=== PATIENT | male | born 2005 | race Caucasian/White ===

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

== ENCOUNTER 2024-01-26 18:39 | Emergency (ER) | payer BC, SELFPAY ==
[2024-01-26 18:40] VITALS: BP 132/77; PULSE 90; PULSE 92; RESP 14; TEMP 36.6; O2SAT 96; O2SAT 98; BMI 25.7
[2024-01-26 19:37] VITALS: BP 131/76; PULSE 79; RESP 16; O2SAT 98
--- NOTE | 2024-01-26 19:37 | CT_ITS ---
EXAM: CT HEAD WITHOUT INTRAVENOUS CONTRAST CLINICAL INDICATION: head truama TECHNIQUE: Multiple axial images were obtained of the head without intravenous contrast. This CT exam was performed using one or more of the following dose reduction techniques: automated exposure control, adjustment of the mA and/or kV according to patient size, and/or use of iterative reconstruction technique. COMPARISON: No relevant prior studies available. FINDINGS: BRAIN AND EXTRA-AXIAL SPACES: Unremarkable. No intra- or extra-axial hemorrhage. No evidence of acute infarct. No intracranial mass or mass effect. There is preservation of the freeman/white matter interface. Posterior fossa structures are unremarkable. Ventricles are appropriate for age. No hydrocephalus. Basal cisterns are patent. BONES/JOINTS: Unremarkable. No discrete lytic or blastic abnormalities. SINUSES: Unremarkable as visualized. Clear. MASTOID AIR CELLS: Unremarkable. Clear. ORBITS: Visualized globes, extraocular muscles, optic nerves and retrobulbar fat appear unremarkable. CT/Brain/Head without Contrast IMPRESSION: Negative head/brain CT without intravenous contrast. Electronically Signed: Bjorn Washington MD at 21:32 EDT ,
--- NOTE | 2024-01-26 19:40 | RAD_ITS ---
EXAM: XR RIGHT FOREARM, 2 VIEWS CLINICAL INDICATION: Injury/Pain TECHNIQUE: Frontal and lateral views of the right forearm. COMPARISON: No relevant prior studies available. FINDINGS: BONES/JOINTS: There is a fracture of the proximal ulna through the trochlear notch. No dislocation. SOFT TISSUES: Unremarkable. RAD/Forearm 2 Views IMPRESSION: Fracture of the proximal ulna through the trochlear notch. Electronically Signed: Bjorn Washington MD at 20:13 EDT ,
--- NOTE | 2024-01-26 19:40 | RAD_ITS ---
EXAM: XR RIGHT ELBOW, 2 VIEWS CLINICAL INDICATION: Injury/Pain TECHNIQUE: Frontal and lateral views of the right elbow. COMPARISON: No relevant prior studies available. FINDINGS: BONES/JOINTS: There is a fracture of the trochlear notch. There is overlying soft tissue swelling. There is no displacement of the anterior or posterior fat pads. Preservation of the joint space. No destructive or sclerotic lesions. SOFT TISSUES: See above. RAD/Elbow 2 Views IMPRESSION: Fracture of the proximal ulna at the trochlear notch. There is associated soft tissue swelling. Electronically Signed: Bjorn Washington MD at 20:24 EDT ,
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
[2024-01-26] MEDS: Acetaminophen 325 MG Tablet 650 MG PO (21:20)
[2024-01-26 21:27] VITALS: BP 122/78; PULSE 78; RESP 16; TEMP 36.7; O2SAT 99
== END 2024-01-26 21:58 | disposition home or self-care (01) ==
PROVIDERS: Emergency Provider Emergency Medicine; PCP Nurse Practitioner; Visit Provider Emergency Medicine
DX: S52.001A Unspecified fracture of upper end of right ulna, initial encounter for closed fracture (principal); V86.99XA Unspecified occupant of other special all-terrain or other off-road motor vehicle injured in nontraffic accident, initial encounter; Y93.89 Activity, other specified; S80.211A Abrasion, right knee, initial encounter; S80.212A Abrasion, left knee, initial encounter; S70.312A Abrasion, left thigh, initial encounter; S30.811A Abrasion of abdominal wall, initial encounter; Y92.89 Other specified places as the place of occurrence of the external cause
CPT/HCPCS: 29105; 29405; 70450; 73070; 73090; 99282

== ENCOUNTER 2024-02-04 08:02 | Day surgery (SDC) | payer BC, SELFPAY ==
[2024-02-04] VITALS (10 sets, daily range): BP systolic 122–146; BP diastolic 74–89; PULSE 68–84; RESP 14–16; TEMP 36.6–37.1; O2SAT 92–100; BMI 25.3
[2024-02-04] MEDS: Lactated Ringers 1,000 ML 15 ML IV (08:35)
--- NOTE | 2024-02-04 09:29 | PRE.ANES_ITS ---
ASA Classification* ASA Classification ASA Classification: 2 Assessment & Plan Anesthesia* Anesthesia Assessment Anesthesia Assessment: Discussed sedation and/or anesthesia options, risks, benefits, and alternatives with patient/parents/legal guardian/POA. Questions invited. The patient/parents/legal guardian/POA seems to understand and agrees to proceed with anesthesia plan. Reviewed the physical assessment, medical history, allergy history and patient home medications list prior to surgery/procedure/anesthetic and documented any changes. Performed airway and anesthesia risk assessments. Anesthesia Type Anesthesia Type: General (see written pre anesthesia record for full assessment) Anesthesia Focused Assessment* Temperature: 97.9 F Pulse Rate: 80 Blood Pressure: 122/79 Respiratory Rate: 16 Pulse Ox: 100 Airway Assessment Mouth opens: >3 cm Mallampati Score: II Focused Labs Anesthesia Preop lab: CBC CHEMISTRY COAG Pre-Assessment Diagnosis/Proposed Procedure Planned Operative Procedure(s): OPEN REDUCTION INTERNAL FIXATION OLECRANON FRACTURE Anesthesia History Anesthesia History - shipper and receiving: Anesthesia History - shipper and receiving Hx Hospitalization No 01/31/24 13:20 Any Problems With Anesthesia No 01/31/24 13:20 Cholinesterase deficiency No 01/31/24 13:20 You/Your Family Experience No 01/31/24 13:20 fever (hyperthermia) with Relationship Recent Exposure to Contagious No 02/04/24 08:28 Disease Does patient have nerve No 01/31/24 13:20 stimulator Patient instructed to have device shut off --Does patient have Pacemaker No 02/04/24 08:28 or ICD? When Was Last Pacemaker Check QUESTION #4 FULL TEXT: You/Your Family Experience fever (hyperthermia) with Anesthesia Last Oral Intake Last Oral intake: Last Oral Intake NPO since 22:15 02/04/24 08:28 Meds taken in AM with sips of No 02/04/24 08:28 water? Meds patient instructed to take am of surgery PONV PONV - shipper and receiving: PONV - shipper and receiving Female No 01/31/24 13:20 HX of Motion Sickness No 01/31/24 13:20 HX of N/V After Surgery No 01/31/24 13:20 Non-Smoker Yes 01/31/24 13:20 Duration of Surgery greater Yes 01/31/24 13:20 than 60 minutes Number of Risk Factors 2 01/31/24 13:20 PONV Score Moderate Risk 01/31/24 13:20 Height & Weight Height & Weight: Anesthesia: Height & Weight Height 6 ft 3 in 02/04/24 08:28 Weight: 92 kg 02/04/24 08:28 Body Mass Index (BMI) 25.3 02/04/24 08:28 Respiratory Assessment Respiratory Assessment - shipper and receiving: Respiratory Tract Infection Hx - shipper and receiving Hx Respiratory Tract Infection No 01/31/24 13:20 STOP Sleep Apnea STOP Sleep Apnea - shipper and receiving: STOP Sleep Apnea - shipper and receiving Hx Hypertension No 01/31/24 13:20 Hx Sleep Apnea No 01/31/24 13:20 CPAP BIPAP Do you snore loudly (louder No 01/31/24 13:20 than talking or can be heard Do you often feel tired/ No 01/31/24 13:20 fatigued/ sleepy during daytime? Has anyone observed you stop No 01/31/24 13:20 breathing during sleep? STOP Results Negative 01/31/24 13:20 QUESTION #5 FULL TEXT : Do you snore loudly (louder than talking or can be heard through closed doors)? 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 Specify any problems Hx of Preganancy in last 3 N/A 01/31/24 13:20 Months Nurse Filling Out Transfusion [id number] 01/31/24 13:20 & Questions: Date: 01/31/24 01/31/24 13:20 Time: :01/31/24 13:20 Patient unable to answer at this time (ie. confused, unrespo /Reproduction History /Reproductive History - shipper and receiving: /Reproductive Hx- shipper and receiving Hx Now Gestational Age (in weeks): EDC: Hx Hx Para Hx Section SAB Active Medications Active Medications: Current Medications Generic Name Dose Route Start Last Admin Trade Name Freq PRN Reason Stop Dose Admin Clindamycin/Sodium Chloride 600 mg in 50 mls @ 100 mls/hr 02/04/24 12:10 Clindamycin 600 Mg/50 Ml-Ns IV 02/04/24 12:39 PREOP ONE Lactated Ringer's 1,000 mls @ 15 mls/hr 02/04/24 08:15 02/04/24 08:35 IV 15 mls/hr .Q48H GRETA Administration PFSH Medical History Wears contact lenses Right wrist fracture Dislocation, elbow ALLERGIES INTO ASTHMA Seasonal allergies Home Medications ?Medication ?Instructions ?Recorded ?Last Taken ?Type hydrocodone-acetaminophen 5-325mg 1 tab PO Q6H PRN PRN Pain 3 days 01/26/24 Unknown Rx 5mg-325mg #12 TABLETS albuterol sulfate 90 mcg/actuation 2 inh inhalation Q8H PRN shortness 01/31/24 Unknown History aerosol inhaler of breath or wheezing Allergy/AdvReac Type Severity Reaction Status Date / Time ceftriaxone (From Rocephin) Allergy Severe HIVES Verified 02/04/24 08:26 Penicillins Allergy Unknown Verified 02/04/24 08:26 Family History Other Breast cancer COPD (chronic obstructive pulmonary disease) CVA (cerebral vascular accident) Diabetes Hyperlipidemia Hypertension Surgical History History of dental surgery Social History Smoking Status: Never smoker Review of Systems (Anesthesia) ROS Narrative System reviewed and no additional complaints, except as documented.
[2024-02-04] MEDS: Clindamycin in 0.9% Sod Chlor 600 MG/50 ML BAG 100 MG IV (09:35)
[2024-02-04] MEDS: Lidocaine 1% /Epi 1:100 (50ml) 50 ML VIAL (10:04)
[2024-02-04] MEDS: Bupivacaine 0.25% 30 ML Vial (10:04)
--- NOTE | 2024-02-04 10:20 | RAD_ITS ---
STUDY: X-RAY - RIGHT ELBOW REASON FOR EXAM: Male, 18 years old. Intraoperative digital documentation views. TECHNIQUE: 2 intraoperative digital documentation view(s) of the elbow. COMPARISON: Comparison forearm x-rays dated January 26, 2024 FINDINGS: 2 intraoperative digital documentation views show malleable plate and screw fixation of the olecranon which is in anatomic alignment. Normal radiocapitellar and ulnotrochlear articulations. Soft tissues not well evaluated. RAD/Elbow 2 Views IMPRESSION: Anatomic alignment at the proximal ulna fixation. Electronically Signed: Sabas Mehta MD at 11:15 EDT ,
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
[2024-02-04] MEDS: Ketorolac 30 MG/ML Syringe IV (11:33)
--- NOTE | 2024-02-04 12:04 | PCM.POST.ANE ---
Anesthesia: Postop Eval I Current Vital Signs Temperature: 98.1 F Pulse Rate: 84 Blood Pressure: 131/74 Respiratory Rate: 16 Pulse Ox: 97 Oxygen Delivery Method: Room Air Assessment Airway patent: Yes Spontaneous unlabored respirations: Yes Mental status: Awake and Calm nausea: No Vomiting: No Anesthesia Complication: No Fluid Hydration Crystalloid volume administer (ml): 1,100 Total IV fluid infused: 1,100 Progress Note Anesthesia document: Postop Eval 1 completed: Yes
[2024-02-04] MEDS: HYDROcodone Bitartrate/Apap 5/325 Tablet PO (12:19)
== END 2024-02-04 13:41 | disposition home or self-care (01) ==
LOC: SDC 08:07 → AC 08:07
PROVIDERS: PCP Nurse Practitioner; Referring Provider Student in an Organized Health Care Education/Training Program; Visit Provider Student in an Organized Health Care Education/Training Program
PROC: (CPT 24685; principal; 2024-02-04 09:00)
DX: S52.031A Displaced fracture of olecranon process with intraarticular extension of right ulna, initial encounter for closed fracture (principal); E66.3 Overweight; V86.55XA Driver of 3- or 4- wheeled all-terrain vehicle (ATV) injured in nontraffic accident, initial encounter; Z79.51 Long term (current) use of inhaled steroids
CPT/HCPCS: 24685; 01740; 73070; 76000; C1713; J7120; J2405